=== PATIENT | male | born 1940 | race Caucasian/White ===

== ENCOUNTER 2017-02-15 05:47 | Inpatient (IN) | payer OTHER, MEDICARE ==
--- NOTE | 2017-02-14 18:16 | MH ---
cc: MO DENT M.D., ROHIT K. M.D. LEE, TSE C. MD HORENSTEIN, JOSHUA A. MD DATE OF ADMISSION: 02/15/2017 ADMISSION DIAGNOSIS Lumbar degenerative disk disease. HISTORY OF PRESENT ILLNESS This is a 76-year-old male who presented to us for evaluation of low back pain and leg pain that started 7 years ago. He states his pain initially started like a toothache pain has progressively gotten worse. He states that night his pain radiates into the posterior lower extremities and he rates the pain as 10/10 in severity. He has paresthesias in a similar distribution with this. With walking his pain is 6-8 out of 10 and sitting he is more comfortable. He has been to pain management and had injections which helped with his left leg pain. He states he has an 2 weeks relief from the injections in the right leg but they are becoming less effective. If he goes to the store, he leans on a cart. He use to play softball in a senior league and had to quit because of worsening pain. He has had physical therapy 7 years ago which did not help. PAST MEDICAL HISTORY 1. Significant for hypertension 2. Hyperlipidemia. 3. Gastroesophageal reflux disease 4. Of benign prostatic hypertrophy. 5. Multiple myeloma resections 2002 and 2012 6. bilateral rotator cuff surgery in 1970s and 1999's. 7. Right ear surgery 1969 8. Right heel bone spur removal 1984. 9. Bilateral carpal tunnel surgery in the . CURRENT MEDICATIONS 1. He takes tramadol 50 mg b.i.d. 2. Metoprolol ER succinate 25 mg daily. 3. Atorvastatin 10 mg daily. 4. Omeprazole 20 mg daily. 5. Doxazosin 2 mg daily. 6. Tylenol Extra Strength 4-6 tablets daily. 7. Multivitamin daily. 8. Vitamin B12 1000 milliequivalents daily. 9. Aspirin 81 mg stopped on 02/06. ALLERGIES TO MEDICATIONS BIAXIN FAMILY HISTORY His father is at 82 year's old had a stroke. His mother is at 80 year's old had dimension his brother is at 60 year's old had lung cancer, another brother is alive, one is 61. The other is 66. He has a sister who is alive at 72 and she has ovarian cancer. Another sister who is alive at 82. SOCIAL HISTORY He is retired. He is . He has one child with three step children. He does not smoke, but had in the past he quit in 1988. He drinks alcoholic beverages rarely. REVIEW OF SYSTEMS CONSTITUTIONAL: Denies any fever or chills. HEAD, EYES, EARS, NOSE, AND THROAT: Ears, nose and throat no pharyngitis, exudates or bloody drainage from his nose. He has hearing loss and wears hearing aids. CARDIOVASCULAR SYSTEM: Denies any chest pain or palpitations RESPIRATORY: No cough or shortness of breath. GENITOURINARY: No dysuria hematuria. MUSCULOSKELETAL: Positive for low back pain. SKIN: No rashes or pleuritis. NEUROLOGIC: No difficulty with speech or memory GASTROINTESTINAL: No nausea, vomiting, abdominal pain and PSYCHIATRIC: No anxiety or depression symptoms. ENDOCRINE: No polyuria, no polydipsia. HEMATOLOGIC: Positive for bruising tendencies but no bleeding tendencies. PHYSICAL EXAMINATION HEAD, EARS, EYES, NOSE, AND THROAT: Normocephalic, atraumatic. NECK: Supple. No carotid bruits heard on auscultation. LUNGS: The lungs clear to auscultation bilaterally. HEART: Regular rate and rhythm, normal S1, S2. ABDOMEN: The abdomen is soft, nontender, positive bowel sounds. He is obese. SKIN: The skin reveals no cyanosis or erythema. He has stasis changes, pitting skin on the extremities. MUSCULOSKELETAL: He has 5/5 strength in the lower extremities. He ambulates with a cane. NEUROLOGIC: The patient is awake, alert, oriented. Cranial nerves II-XII are grossly intact. His speech is fluent. Comprehension is good. Sensation is intact in the lower extremities. He has absent reflexes the lower extremities. DATA REVIEWED: We reviewed MRI lumbar spine from December 25, 2016 which reveals severe disk degeneration with disk height collapse at the L4-L5 and L5-S1 levels with moderate disk degeneration at the L1-L2, L2-L3, L3-L4 levels. There is multilevel facet arthropathy throughout the lumbar spine and he has stenosis most prominent the L4-L5 level with the spinal canal and foraminal stenosis at L4-L5, L5-S1 levels, more on the right then the left. IMPRESSION 76-year-old male with a chronic history of low back pain as well as a radiation to the posterior thigh and calves bilaterally although more problem on the right side. He is very restricted his activity status as undergone physical therapy interventional pain management. He has multilevel severe degenerative disk disease with facet arthropathy most prominent the L4-L5, L5-S1 levels with there is also spinal foraminal stenosis. He has a history of coronary artery disease and has edema in his lower extremities and complains of some dyspnea with exertion. The patient was cleared by his necktie operator pockets and pieces at a moderate risk for surgical complications. His necktie operator pockets and pieces Dr. Olivares. The procedure as well as the risks, benefits, alternatives and recovery times were explained in detail with the patient. We have discussed the risks involved with surgery include but not limited to bleeding, infection, muscle weakness voice hoarseness, difficulty swallowing, heart attack, stroke blood clots, non fusion, scar tissue formation among others. The patient states that he understands the procedure as well as the risk involved is requesting that we proceed and he was therefore scheduled accordingly. Bret Leonard MD DICTATED BY: JOHANNY Roper/tato /4:30 PM /5:56 PM
[~2017-02-15] VITALS: Ht 172.7 cm; Wt 126.2 kg
[~2017-02-15 05:47] MED LIST: ACET-703 PO; ASPI1TAB69 PO; ATOR10TA15 PO; DOCU100T9 PO; DOXA1TAB35 PO; METO25TA6 PO; MULT-135 PO; OMEP20TA PO; TRAM50TA PO; VITA10002 PO
[2017-02-15] MEDS ORDERED: METOPROLOL TARTRATE 25 MG TAB PO PRN (06:30)
[2017-02-15] MEDS ORDERED: CHLORHEXIDINE GLUCONATE 2 % 1 PACK (2 CLOTHS) TOPICAL PRN (06:30)
[2017-02-15] MEDS ORDERED: LACTATED RINGER'S 1000 ML IV PRN (06:30)
[2017-02-15] MEDS ORDERED: SODIUM CHLORID 0.9% 500 ML IV PRN (06:30)
[2017-02-15] MEDS ORDERED: POVIDONE IODINE 5% (ANTISEPSIS KIT) 4 APPLICATIONS EACH NARE PRN (06:30)
[2017-02-15] MEDS ORDERED: INSULIN HUMAN REGULAR 1,000 UNITS/10 ML VIAL SQ PRN (06:30)
[2017-02-15] MEDS ORDERED: VANCOMYCIN HCL 1000 MG VIAL ONE ×2 (07:07→08:13)
[2017-02-15] MEDS ORDERED: THROMBIN (TOPICAL) 5,000 UNIT VIAL ONE ×2 (07:07→11:08)
[2017-02-15] MEDS ORDERED: GELFOAM SIZE 100 ONE ×2 (07:07→11:09)
[2017-02-15] MEDS ORDERED: BUPIVACAINE/EPINEPHRINE 0.5% PF 30 ML VIAL ONE (07:07)
[2017-02-15 07:13] VITALS: BP 142/69; PULSE 62; RESP 20; TEMP 98.9; O2SAT 95
[2017-02-15] MEDS ORDERED: SODIUM CHLOR 0.9% 250 ML INJ 250 ML ONE (08:14)
[2017-02-15] MEDS ORDERED: fentaNYL CITRATE 250 MCG/5 ML AMP ONE ×2 (08:31→11:58)
[2017-02-15] MEDS ORDERED: MIDAZOLAM HCL 2 MG/2 ML VIAL ONE (08:31)
[2017-02-15] MEDS ORDERED: DEXAMETHASONE SOD PHOS 4 MG/ML VIAL ONE (08:32)
[2017-02-15] MEDS ORDERED: ACETAMINOPHEN 1000 MG/100 ML VIAL IV ONE (08:32)
[2017-02-15] MEDS ORDERED: FAMOTIDINE 20 MG/2 ML VIAL ONE (08:32)
[2017-02-15] MEDS ORDERED: VANCOMYCIN HCL 1000 MG ON-CALL/NS 250 ML IV SCH ×2 (09:00)
[2017-02-15] MEDS ORDERED: NORMOSOL R INJ 1,000 ML IV ONE (12:00)
[2017-02-15] MEDS ORDERED: ONDANSETRON HCL 4 MG/2 ML VIAL IV PUSH ONE (12:00)
[2017-02-15] MEDS ORDERED: PHENYLEPH/NS 1000 MCG/10 ML SYR IV ONE (12:00)
[2017-02-15] MEDS ORDERED: PROPOFOL 200 MG/20 ML AMP IV ONE (12:00)
[2017-02-15] MEDS ORDERED: ePHEDrine/NS 25 MG/5 ML SYR IV ONE (12:00)
[2017-02-15] MEDS ORDERED: NEOSTIGMINE 3 MG/3 ML SYR IV ONE (12:00)
[2017-02-15] MEDS: NS + KCL 20 MEQ INJ 1,000 ML IV SCH (13:50)
[2017-02-15] MEDS ORDERED: ALUMINUM/MAGNESIUM/SIMETH 30 ML CUP PO PRN (14:00)
[2017-02-15] MEDS ORDERED: MAGNESIUM SULFATE INJ 2 GM in SODIUM CHLORIDE 0.9% INJ 100 ML IV PRN (14:00)
[2017-02-15] MEDS ORDERED: ACETAMINOPHEN 325 MG TAB PO PRN (14:00)
[2017-02-15] MEDS ORDERED: PROCHLORPERAZINE INJ 10 MG/2 ML VIAL IV PUSH PRN (14:00)
[2017-02-15] MEDS ORDERED: CYCLOBENZAPRINE HCL 10 MG TAB PO PRN (14:00)
[2017-02-15] MEDS ORDERED: SODIUM CHLORIDE 0.9% FLUSH 10 ML FLUSH IV FLUSH PRN (14:00)
[2017-02-15] MEDS ORDERED: NALOXONE HCL 0.4 MG/ML AMP IV PRN (14:00)
[2017-02-15] MEDS ORDERED: ZOLPIDEM TARTRATE 5 MG TAB PO PRN (14:00)
[2017-02-15] MEDS ORDERED: POTASSIUM CHLOR 20 MEQ PREMIX 100 ML IV PRN (14:00)
[2017-02-15] MEDS ORDERED: diphenhydrAMINE HCL 50 MG/ML VIAL IV PRN (14:00)
[2017-02-15] MEDS ORDERED: cloNIDine HCL 0.1 MG TAB PO PRN (14:00)
[2017-02-15] MEDS ORDERED: ONDANSETRON HCL 4 MG/2 ML VIAL IV PRN (14:00)
[2017-02-15] MEDS ORDERED: MENTHOL LOZENGE BUCCAL PRN (14:00)
[2017-02-15] MEDS ORDERED: CALCIUM GLUCONATE INJ 1 GM in SODIUM CHLORIDE 0.9% INJ 100 ML IV PRN (14:00)
[2017-02-15] MEDS ORDERED: RESP: ALBUTEROL 2.5 MG/3 ML NEB (PRN) NEB (14:00)
--- NOTE | 2017-02-15 14:01 | PD.OP ---
MD Ying Spring MD Operative Report Date of Surgery: Feb 15, 2017 Preoperative Diagnosis: Intractable low back pain with bilateral polyradiculopathy; severe L4-5 and L5- S1 degenerative disc disease with facet arthropathy and associated foraminal stenosis; L5-S1 degenerative spondylolisthesis Postoperative Diagnosis: Same Procedure: L4-5 and L5-S1 transforaminal interbody fusion; L4-S1 pedicle screw fixation; L4 -5 and L5-S1 interbody cage placement; microsurgical technique Anesthesia: Gen. endotracheal by Keshav Renee Surgeon: Bret Leonard M.D. Methods Time Analyst(s): Selina Smith Operation and Findings: Following initiation of general endotracheal anesthesia, the patient had a Jeronimo catheter placed along with sequential compression devices. A gram of vancomycin was administered intravenously and he was turned in a prone position on a Tommie frame, on a Himanshu table, and all pressure points adequately padded. The lumbosacral region was then prepped with Chloraprep and sterilely draped with Ioban along the usual sterile draping. A right paraspinal skin incision was then made extending from the L4--S1 level after infiltrating the skin with 0.5% Marcaine with epinephrine solution extending down through the fascia. The muscle fibers were split using avascular fatty plane and detached from the underlying facets, transverse process and lateral portion of lamina on the right side and a self-retaining retractor used for exposure. Intraoperative fluoroscopy was also used for level of confirmation along with microscope magnification for further dissection. There was significant facet and ligamentum flavum hypertrophy noted at the L4-5 and L5-S1 levels. Right L4-5 and L5-S1 facet was resected with a drill bit along with the lamina and there was severe foraminal and lateral recess stenosis from hypertrophied ligamentum flavum and facet which were decompressed. There was significant disc height collapse along with disc protrusion also leading to the foraminal stenosis at both levels along with disc protrusion. Epidural hemostasis was achieved with bipolar cautery and Gelfoam with thrombin. Subsequently entered into the disc space at the L4-5 and L5-S1 level with a #15 blade and ryan were used for discectomy. I then placed PEEK cage packed with local autograft bone and more local autograft bone was packed adjacent to the cage in both interspaces for added interbody fusion. With placement of the cage, I was able to distract the interspace and opened up the foramen further bilaterally. Subsequently in order to facilitate the fusion and provide stabilization, pedicle screw fixation was undertaken using Borden spine screws on entry point at the right L4, L5 and S1 levels at the junction of the transverse process and facet. Subsequently using AP and lateral fluoroscopy tap and screw placement. The screws were then connected with a srinivasa and locked in place with caps. The construct appeared very secure at this point. The area was then copiously irrigated with Vancomycin solution and powder. The retractors were removed and the bipolar cautery used for hemostasis. The muscle fascia was then approximated using 2-0 Vicryl interrupted stitches and then 3-0 Vicryl subcuticular stitches also placed in interrupted fashion. The final skin closure was completed with Dermabond. A sterile dressing was then applied. The patient then turned in supine position, extubated and taken to recovery room. There were no intraoperative complications. All sponge and needle counts were correct at the end of procedure. Estimated blood loss about 100 ml. Bret Leonard MD Feb 15, 2017 14:01
--- NOTE | 2017-02-15 14:02 | RADRPT ---
EXAM DATE/TIME: 02/15/2017 09:16 [facility] COMPARISON: No previous studies available for comparison. INDICATIONS : L4-L5-S1 posterior lumbar fusion. Level localization. MEDICAL HISTORY : None. SURGICAL HISTORY : None. ENCOUNTER: Initial ACUITY: 1 day PAIN SCORE: Non-responsive. LOCATION: Lumbar spine. FINDINGS: Intraoperative examination demonstrates a localizing probe pointing towards L4 and L5. CONCLUSION: Intraoperative changes as above. Zohaib Ambriz MD on February 15, 2017 at 14:00 Board Certified Radiologist. This report was verified electronically.
--- NOTE | 2017-02-15 14:02 | RADRPT ---
EXAM DATE/TIME: 02/15/2017 09:16 [facility] COMPARISON: SPINE LUMBAR LATERAL ONLY, February 15, 2017, 9:16. INDICATIONS : Post-op L4-L5-S1 posterior lumbar fusion. MEDICAL HISTORY : None. SURGICAL HISTORY : None. ENCOUNTER: Initial ACUITY: 1 day PAIN SCORE: Non-responsive. LOCATION: Lumbar spine. FINDINGS: Surgical screws traverse the bodies of L4, L5 and S1 with posterior stabilization hardware in place. CONCLUSION: Intact immediate postsurgical changes. Zohaib Ambriz MD on February 15, 2017 at 13:59 Board Certified Radiologist. This report was verified electronically.
[2017-02-15] MEDS ORDERED: DO NOT ADM ANY ANTICOAGULANT DRUGS PRN (14:15)
[2017-02-15 14:27] LABS: AUTOMATED NEUTROPHIL # 14.1 TH/MM3 (1.8-7.7); BASOPHIL % 0.2 % (0.0-2.0); HEMATOCRIT 39.2 % (39.0-51.0); HEMO FLAGS DIFF FINAL; LYMPH % 10.3 % (9.0-44.0); LYMPHOCYTE # 1.7 TH/MM3 (1.0-4.8); MEAN CELL VOLUME 91.8 FL (80.0-100.0); MEAN CORPUSCULAR HEMOGLOBIN 29.7 PG (27.0-34.0); MEAN CORPUSCULAR HGB CONC 32.4 % (32.0-36.0); MONO % 2.9 % (0.0-8.0); NEUT % 86.6 % (16.0-70.0); PLATELET COUNT 147 TH/MM3 (150-450); RED BLOOD COUNT 4.27 MIL/MM3 (4.50-5.90); RED CELL DISTRIBUTION WIDTH 13.7 % (11.6-17.2); WHITE BLOOD COUNT 16.3 TH/MM3 (4.0-11.0)
[2017-02-15] MEDS: MORPHINE SULFATE 30 MG/30 ML PCA IV SCH (14:38)
[2017-02-15 14:52] LABS: BICARBONATE 26.8 MEQ/L (21.0-32.0); MAGNESIUM 2.1 MG/DL (1.5-2.5); POTASSIUM 4.7 MEQ/L (3.5-5.1)
[2017-02-15] MEDS: CLINDAMYCIN INJ 600 MG in SODIUM CHLORIDE 0.9% INJ 100 ML IV SCH ×2 (14:56→21:48)
[2017-02-15 18:19] VITALS: O2SAT 95
[2017-02-15 18:40] VITALS: BP 154/68; PULSE 90; RESP 16; TEMP 97.5; O2SAT 98
[2017-02-15 20:00] VITALS: BP 144/61; PULSE 86; RESP 20; TEMP 98.5; O2SAT 97
[2017-02-15] MEDS: SODIUM CHLORIDE 0.9% FLUSH 10 ML FLUSH IV FLUSH SCH (21:00)
[2017-02-15] MEDS: DOCUSATE SODIUM 100 MG CAP PO SCH (21:47)
[2017-02-15] MEDS: ATORVASTATIN 10 MG TAB PO SCH (21:47)
[2017-02-15] MEDS: PCA - TOTAL MG MORPHINE DELIVERED PER SHIFT SCH (21:48)
[2017-02-16] VITALS (8 sets, daily range): BP systolic 107–135; BP diastolic 43–57; PULSE 74–100; RESP 18–24; TEMP 96.5–102.2; O2SAT 94–99
[2017-02-16] MEDS: CLINDAMYCIN INJ 600 MG in SODIUM CHLORIDE 0.9% INJ 100 ML IV SCH ×2 (02:44→08:30)
[2017-02-16] MEDS: NS + KCL 20 MEQ INJ 1,000 ML IV SCH ×2 (05:35→14:50)
[2017-02-16] MEDS: PCA - TOTAL MG MORPHINE DELIVERED PER SHIFT SCH ×3 (05:35→21:53)
[2017-02-16] MEDS: METOPROLOL SUCCINATE 25 MG EXTENDED RELEASE TAB PO SCH (08:29)
[2017-02-16] MEDS: ASPIRIN EC 81 MG TABEC PO SCH (08:29)
[2017-02-16] MEDS: SODIUM CHLORIDE 0.9% FLUSH 10 ML FLUSH IV FLUSH SCH ×2 (08:29→19:48)
[2017-02-16] MEDS: DOCUSATE SODIUM 100 MG CAP PO SCH ×2 (08:29→19:47)
[2017-02-16] MEDS: CYANOCOBALAMIN 1,000 MCG TAB PO SCH (08:29)
[2017-02-16] MEDS: MULTIVITAMIN TAB PO SCH (08:29)
[2017-02-16] MEDS: PANTOPRAZOLE SOD 20 MG DELAYED RELEASE TAB PO SCH (08:29)
[2017-02-16] MEDS: POLYETHYLENE GLYCOL 17 GM PKG PO SCH (08:29)
[2017-02-16] MEDS ORDERED: DOXAZOSIN MESYLATE 2 MG TAB PO SCH (09:00)
--- NOTE | 2017-02-16 12:24 | HHI.NSPN ---
History Chief Complaint: right gluteal pain Interval History 76-year-old male underwent L4 5, L5-S1 TLIF 02/15/17 02/16/17: Bed with brace. FOREST NURSERY SUPERVISOR in place Exam Results Vital Signs Date Time Temp Pulse Resp B/P Pulse Ox O2 Delivery O2 Flow Rate FiO2 02/16/17 07:59 98.5 74 18 117/44 97 02/16/17 07:02 Nasal Cannula 2.00 Intake and Output 02/15/17 02/15/17 02/16/17 08:00 16:00 00:00 Intake Total 1400 ml 1030 ml Output Total 10 ml 800 ml Balance 1390 ml 230 ml Physical Examination Out of bed to chair with LSO brace JOHN hose and sequential compression devices in place Respirations clear to auscultation Cardiac regular without murmur Abdomen protuberant, soft, nontender, positive bowel sounds No significant extremity edema Sensation intact to light touch lower extremities Strength within normal limits major flexion and extension groups lower extremities Lab, Micro, Other Results Laboratory Tests Test 02/15/17 14:18 White Blood Count 16.3 TH/MM3 Red Blood Count 4.27 MIL/MM3 Hemoglobin 12.7 GM/DL Hematocrit 39.2 % Mean Corpuscular Volume 91.8 FL Mean Corpuscular Hemoglobin 29.7 PG Mean Corpuscular Hemoglobin 32.4 % Concent Red Cell Distribution Width 13.7 % Platelet Count 147 TH/MM3 Mean Platelet Volume 8.4 FL Neutrophils (%) (Auto) 86.6 % Lymphocytes (%) (Auto) 10.3 % Monocytes (%) (Auto) 2.9 % Eosinophils (%) (Auto) 0.0 % Basophils (%) (Auto) 0.2 % Neutrophils # (Auto) 14.1 TH/MM3 Lymphocytes # (Auto) 1.7 TH/MM3 Monocytes # (Auto) 0.5 TH/MM3 Eosinophils # (Auto) 0.0 TH/MM3 Basophils # (Auto) 0.0 TH/MM3 CBC Comment DIFF FINAL Differential Comment Sodium Level 141 MEQ/L Potassium Level 4.7 MEQ/L Chloride Level 107 MEQ/L Carbon Dioxide Level 26.8 MEQ/L Anion Gap 7 MEQ/L Blood Urea Nitrogen 24 MG/DL Creatinine 1.43 MG/DL Estimat Glomerular Filtration 48 ML/MIN Rate Random Glucose 159 MG/DL Calcium Level 8.4 MG/DL Magnesium Level 2.1 MG/DL Medical Decision Making Impression and Plan Impression: 1. Stable neurologic exam. L4 5, L5-S1 laminectomy fusion. 2. Postoperative hypotension Plan: Discussed with patient and family. Cardura decreased to 1 mg daily. Monitor blood pressure. Continue FOREST NURSERY SUPERVISOR for now Continue therapy Eyal Bettencourt MD Feb 16, 2017 12:24
[2017-02-16] MEDS: ATORVASTATIN 10 MG TAB PO SCH (19:47)
[2017-02-17] VITALS: BP 123/52; PULSE 87; RESP 24; TEMP 99.1; O2SAT 97
[2017-02-17] MEDS: MORPHINE SULFATE 30 MG/30 ML PCA IV SCH (02:42)
[2017-02-17 03:46] VITALS: BP 130/55; PULSE 71; RESP 20; TEMP 98.9; O2SAT 94
[2017-02-17] MEDS: NS + KCL 20 MEQ INJ 1,000 ML IV SCH ×2 (03:51→07:38)
[2017-02-17] MEDS: PCA - TOTAL MG MORPHINE DELIVERED PER SHIFT SCH ×2 (05:35→11:14)
[2017-02-17] MEDS: METOPROLOL SUCCINATE 25 MG EXTENDED RELEASE TAB PO SCH (07:31)
[2017-02-17] MEDS: PANTOPRAZOLE SOD 20 MG DELAYED RELEASE TAB PO SCH (07:31)
[2017-02-17] MEDS: ASPIRIN EC 81 MG TABEC PO SCH (07:31)
[2017-02-17] MEDS: DOXAZOSIN MESYLATE 1 MG TAB PO SCH (07:31)
[2017-02-17] MEDS: MULTIVITAMIN TAB PO SCH (07:32)
[2017-02-17] MEDS: DOCUSATE SODIUM 100 MG CAP PO SCH ×2 (07:32→20:27)
[2017-02-17] MEDS: SODIUM CHLORIDE 0.9% FLUSH 10 ML FLUSH IV FLUSH SCH ×2 (07:32→20:27)
[2017-02-17] MEDS: CYANOCOBALAMIN 1,000 MCG TAB PO SCH (07:32)
[2017-02-17] MEDS: MAGNESIUM HYDROXIDE SUSP 30 ML CUP PO PRN ×2 (07:32→20:34)
[2017-02-17] MEDS: POLYETHYLENE GLYCOL 17 GM PKG PO SCH (07:32)
[2017-02-17] MEDS: ACETAMINOPHEN/HYDROcodone 325 MG/10 MG TAB PO PRN ×3 (07:32→15:17)
[2017-02-17 08:00] VITALS: BP 99/55; PULSE 74; RESP 18; TEMP 99.3; O2SAT 95
[2017-02-17 12:00] VITALS: BP 112/53; PULSE 73; RESP 18; TEMP 98.8; O2SAT 96
[2017-02-17] MEDS ORDERED: WALKER WHEELS/F1 MIS (12:39)
--- NOTE | 2017-02-17 12:41 | HHI.FF ---
Face to Face Verification Diagnosis: (1) Lumbar disc prolapse with compression radiculopathy (2) Low back pain Physical Therapy Order: Evaluate and Treat, Improve ambulation Home Health Nursing Order: Medical education Signs/symptoms of disease process Wound care and dressing changes I have seen patient Jass Coats on 02/17/17. My clinical findings support the need for the requested home health care services because: Deconditioned w/ increased weakness Limited ability to care for self High risk of falls I certify that my clinical findings support that this patient is homebound because: Post-op weakness Unsteady gait/balance Unsafe to leave home unassisted Unable to use public transportation Eyal Bettencourt MD Feb 17, 2017 12:40
[2017-02-17 15:18] VITALS: BP 119/57; PULSE 76; RESP 18; TEMP 98.2; O2SAT 95
--- NOTE | 2017-02-17 19:27 | HHI.NSPN ---
History Chief Complaint: right gluteal pain Interval History 76-year-old male underwent L4 5, L5-S1 TLIF 02/15/17 02/16/17: Bed with brace. HAMMER FITTER in place Exam Results Vital Signs Date Time Temp Pulse Resp B/P Pulse Ox O2 Delivery O2 Flow Rate FiO2 02/17/17 15:18 98.2 76 18 119/57 95 02/17/17 07:38 Room Air 02/16/17 10:06 21 02/16/17 07:02 2.00 Intake and Output 02/16/17 02/16/17 02/17/17 08:00 16:00 00:00 Intake Total 240 ml 1148 ml 1772 ml Output Total 500 ml 800 ml Balance -260 ml 348 ml 1772 ml Physical Examination Out of bed to chair with LSO brace JOHN hose and sequential compression devices in place Respirations clear to auscultation Cardiac regular without murmur Abdomen protuberant, soft, nontender, positive bowel sounds No significant extremity edema Sensation intact to light touch lower extremities Strength within normal limits major flexion and extension groups lower extremities Medical Decision Making Impression and Plan Impression: 1. Stable neurologic exam. L4 5, L5-S1 laminectomy fusion. 2. Postoperative hypotension improving Plan: Discussed with patient and family. Cardura decreased to 1 mg daily. Monitor blood pressure. Discontinue HAMMER FITTER Continue physical therapy Discussed with case management. Orders for walker and home health care-home physical therapy placed Eyal Bettencourt MD Feb 17, 2017 19:27
[2017-02-17 20:00] VITALS: BP 102/44; PULSE 79; RESP 20; TEMP 99.9; O2SAT 92
[2017-02-17] MEDS: ATORVASTATIN 10 MG TAB PO SCH (20:27)
[2017-02-18] VITALS: BP 125/55; PULSE 93; RESP 20; TEMP 100.4; O2SAT 95
[2017-02-18] MEDS: ACETAMINOPHEN/HYDROcodone 325 MG/10 MG TAB PO PRN ×4 (01:51→16:17)
[2017-02-18 04:00] VITALS: TEMP 100.2
[2017-02-18 08:00] VITALS: BP 131/57; PULSE 80; RESP 19; TEMP 98.7; O2SAT 93
[2017-02-18] MEDS: DOCUSATE SODIUM 100 MG CAP PO SCH (08:34)
[2017-02-18] MEDS: PANTOPRAZOLE SOD 20 MG DELAYED RELEASE TAB PO SCH (08:34)
[2017-02-18] MEDS: MULTIVITAMIN TAB PO SCH (08:34)
[2017-02-18] MEDS: DOXAZOSIN MESYLATE 1 MG TAB PO SCH (08:35)
[2017-02-18] MEDS: ASPIRIN EC 81 MG TABEC PO SCH (08:35)
[2017-02-18] MEDS: SODIUM CHLORIDE 0.9% FLUSH 10 ML FLUSH IV FLUSH SCH (08:36)
[2017-02-18] MEDS: CYANOCOBALAMIN 1,000 MCG TAB PO SCH (08:36)
[2017-02-18] MEDS: POLYETHYLENE GLYCOL 17 GM PKG PO SCH (08:36)
[2017-02-18] MEDS: METOPROLOL SUCCINATE 25 MG EXTENDED RELEASE TAB PO SCH (08:53)
--- NOTE | 2017-02-18 10:40 | HHI.NSPN ---
(Jase Cm) History Chief Complaint: right gluteal pain extending into posterior right hamstring. ( Jase Cm) Interval History 02/18/17: Pt sitting up in chair. Complains of pain radiating into the right buttocks and posterior hamstring area not past the knee. Denies any chest pain or sob. Having BMs. Ambulates. Pain controlled off PERSONNEL ASSOCIATE. (Jase Cm) Review of Systems General: Negative for: fever, chills, insomnia Respiratory: Negative for: shortness of breath, cough, sputum Cardiovascular: Negative for: chest pain Gastrointestinal: Negative for: nausea, vomitting, diarrhea, constipation ( Jase Cm) Exam Results Vital Signs Date Time Temp Pulse Resp B/P Pulse Ox O2 Delivery O2 Flow Rate FiO2 02/18/17 08:00 98.7 80 19 131/57 93 02/18/17 01:05 Room Air 02/16/17 10:06 21 02/16/17 07:02 2.00 Intake and Output 02/17/17 02/17/17 02/18/17 08:00 16:00 00:00 Intake Total 725 ml 720 ml 240 ml Output Total 400 ml 275 ml Balance 725 ml 320 ml -35 ml (Jase Cm) Physical Examination Resp: CTA bilaterally Heart: NSR no murmurs Abd: Soft positive bs. Skin: No cyanosis or erythema Muscle: Moves LEs with 5/5 strength. Pt ambulates with walker. Neuro: Pt awake and alert. Follows commands well. Speech clear and appropriate. (Jase Cm) Lab, Micro, Other Results 02/17/17 02/17/17 02/18/17 15:00 23:00 07:00 Intake Total 720 ml 240 ml 120 ml Output Total 400 ml 275 ml Balance 320 ml -35 ml 120 ml Intake Oral 720 ml 240 ml 120 ml Output Urine Total 400 ml 275 ml # Voids 3 2 # Bowel Movements 0 0 1 (Jase Cm) Medical Decision Making Impression and Plan A: 76 y/o m s/p L4/L5 and L5/S1 TLIF with cage and pedicle screw fixation. P: Discharge pt home. continue with pain control. Discussed and pt and agree to using Neurontin 300mg qhs. Follow up as scheduled in the office. (Jase Cm) Attending Statement The exam, history, and the medical decision-making described in the above note were completed with the assistance of the mid-level provider. I reviewed and agree with the findings presented. I attest that I had a [id number] encounter with the patient on the same day, and personally performed and documented my assessment and findings in the medical record. (Bret Leonard MD) Jase Cm Feb 18, 2017 10:40 Bret Leonard MD Feb 18, 2017 12:11
[2017-02-18] MEDS ORDERED: GABA300C5 PO (10:44)
[2017-02-18] MEDS ORDERED: HYDR-3583 PO (10:44)
[2017-02-18 12:00] VITALS: BP 138/62; PULSE 80; RESP 21; TEMP 99; O2SAT 96
[2017-02-22] MEDS ORDERED: GABA300C5 PO (15:58)
--- NOTE | 2017-03-22 16:40 | HHI.DS ---
Discharge Summary Admission Date Feb 15, 2017 at 13:54 Discharge Date: Feb 18, 2017 Admitting Diagnosis (1) Lumbar spondylolysis Diagnosis: Principal ICD Code: M43.06 (2) Facet arthropathy, lumbar Diagnosis: Principal ICD Code: M12.88 (3) Lumbar degenerative disc disease Diagnosis: Principal ICD Code: M51.36 (4) Lumbar foraminal stenosis Diagnosis: Principal ICD Code: M99.83 (5) Lumbar stenosis with neurogenic claudication Diagnosis: Principal ICD Code: M48.06 (6) Low back pain Diagnosis: Principal ICD Code: M54.5 (7) Lumbar disc prolapse with compression radiculopathy Diagnosis: Principal ICD Code: M51.16 Procedures L4/L5 and L5/S1 transforaminal interbody fusion with cage and pedicle screw fixation by Bret Leonard MD on 02/15/17. Brief History Is a 76-year-old male who presented to our office for an evaluation of low back pain and leg pain started 7 years ago. He states his pain initially started like a toothache type of pain has progressively gotten worse. He states the at night his pain radiates into the posterior lower extremities and he rates the pain as 10 out of 10 in severity. He has paresthesias in a similar distribution with this. With walking his pain as 6-8/10 and sitting he is more comfortable. He has been to pain management had injections which helped with his left leg pain. He states he had 2 weeks relief from the injections in the right leg but they've become less effective. If he has to go to the store he leans on a cart. He has been unable to do the activities he enjoys doing such as playing softball. He has been to physical therapy 7 years ago which did not help. Imaging MRI of the lumbar spine from 12/25/16 reveal severe disc degeneration with disc height collapse at the L4/L5 and L5/S1 levels with moderate disc degeneration at the L1/L2, L2/L3, L3/L4 levels. There is multilevel facet arthropathy throughout the lumbar spine and he has stenosis most prominent at the L4/L5 level with spinal canal and foraminal stenosis at L4/L5, L5/S1 more on the right than the left. Hospital Course Patient underwent the above-noted procedure performed by Dr. Leonard. There is no intraoperative complications. Postoperatively patient was admitted to the medical/surgical floor. His pain was controlled with a THREAD WINDER. Physical therapy was consulted to in his activity status was increased. Patient's THREAD WINDER was discontinued and his pain was controlled with oral pain medication. Patient was discharged home in stable condition. Pt Condition on Discharge: Stable Discharge Disposition: Disch w/ Home Health Serv Discharge Instructions DIET: Follow Instructions for: As Tolerated, No Restrictions ACTIVITIES You can perform: Shower Only-No Bath Activities to Avoid: Lifting/Bending, Prolonged Standing, Strenuous Activity, Bathing, Driving ADDITIONAL Activity Instructio: Lumbar brace on when oob. Follow up Referrals: Home Health with [facility] New Medications: Walker with Front Wheels (Walker with Front Wheels) 1 Mis Mis 1 EA .ROUTE DIRECTED Pain Management #1 Ref 0 EA PENDING: Hydrocodone-Acetaminophen (Hydrocodone-Acetaminophen) 10-325 mg Tab 1 TAB PO Q4H PRN PAIN SCALE 1 TO 5 #60 TAB Continued Medications: Aspirin (Aspirin) 81 Mg Tabdr 81 MG PO DAILY TAB Atorvastatin (Atorvastatin) 10 Mg Tab 10 MG PO HS Cholesterol Management #30 Ref 0 TAB Cyanocobalamin (Vitamin B-12) 1,000 Mcg Tab 1000 MCG PO DAILY Nutritional Supplement #1 Ref 0 BOTTLE Docusate Sodium (Docusate Sodium) 100 Mg Tab 100 MG PO DAILY TAB Doxazosin (Doxazosin) 2 Mg Tab 2 MG PO DAILY #30 Ref 0 TAB Metoprolol Succinate ER 24 HR (Metoprolol Succinate ER 24 HR) 25 Mg Tab 25 MG PO DAILY #30 Ref 0 TAB Multiple Vitamin (Multi Vitamin) 1 Tab Tab 1 TAB PO DAILY TAB Omeprazole (Omeprazole) 20 Mg Tab 20 MG PO DAILY #30 Ref 0 TAB Discontinued Medications: Acetaminophen (Tylenol Extra Strength) 500 Mg Tab 500 MG PO Q4-6H PRN PAIN Ref 0 TAB Tramadol (Tramadol) 50 Mg Tab 50 MG PO Q8H PRN PAIN Ref 0 TAB Jase Cm March 22, 2017 16:40
== END 2017-02-18 17:07 | disposition home health service (06) | DRG 460 ==
LOC: HSDC 05:47 → EDSTATUS 08:30 → HSDI 13:54 → N06A 16:59
PROVIDERS: ADMIT Neurological Surgery; ATTEND Neurological Surgery
PROC: 0SG30AJ Fusion of Lumbosacral Joint with Interbody Fusion Device, Posterior Approach, Anterior Column, Open Approach (ICD-10-PCS; 2017-02-15)
PROC: 0SB40ZZ Excision of Lumbosacral Disc, Open Approach (ICD-10-PCS; 2017-02-15)
PROC: 0SG00AJ Fusion of Lumbar Vertebral Joint with Interbody Fusion Device, Posterior Approach, Anterior Column, Open Approach (ICD-10-PCS; principal; 2017-02-15 08:52)
DX: M51.17 Intervertebral disc disorders with radiculopathy, lumbosacral region (principal); I10 Essential (primary) hypertension; E78.5 Hyperlipidemia, unspecified; K21.9 Gastro-esophageal reflux disease without esophagitis; M48.07 Spinal stenosis, lumbosacral region; M43.17 Spondylolisthesis, lumbosacral region; I95.81 Postprocedural hypotension; G89.29 Other chronic pain; E66.9 Obesity, unspecified; Z68.41 Body mass index [BMI] 40.0-44.9, adult; M46.07 Spinal enthesopathy, lumbosacral region; Z85.89 Personal history of malignant neoplasm of other organs and systems; Z87.891 Personal history of nicotine dependence
CPT/HCPCS: 72020; 72100; 76000; 80048; 83735; 85025; 86850; 86900; 86901; 94150; C1713; J0131; J1100; J2250; J2270; J2370; J2405; J2710; J3010; J3370; J3480; J7050; L0484

== ENCOUNTER → 2017-12-27 | Outpatient (CLI) | payer OTHER ==
[~2017-12-27] MED LIST changes: -ACET-703 PO; +ACET-822 PO; -ASPI1TAB69 PO; -ATOR10TA15 PO; -DOCU100T9 PO; +LISI20TA3 PO; +METO1TAB42 PO; -METO25TA6 PO; -MULT-135 PO; +MULT-65 PO; -OMEP20TA PO; +OMEP20TA93 PO; -TRAM50TA PO; +TYLE325T PO
== END ==
LOC: CPRE 09:06
PROVIDERS: ATTEND Orthopaedic Surgery Sports Medicine
DX: M17.12 Unilateral primary osteoarthritis, left knee (principal)

== ENCOUNTER 2018-01-13 07:55 | Inpatient (IN) | payer OTHER, MEDICARE ==
[~2018-01-13] VITALS: Ht 172.7 cm; Wt 121.2 kg
[~2018-01-13 07:55] MED LIST changes: -TYLE325T PO
[2018-01-13] MEDS: PANTOPRAZOLE SOD 20 MG DELAYED RELEASE TAB PO SCH ×2 (08:00→09:00)
[2018-01-13] MEDS ORDERED: ceFAZolin 2 GM PREMIX 50 ML IV SCH (08:30)
[2018-01-13] MEDS ORDERED: POVIDONE IODINE 5% (ANTISEPSIS KIT) 4 APPLICATIONS EACH NARE PRN (08:30)
[2018-01-13] MEDS ORDERED: LACTATED RINGER'S 1000 ML IV PRN (08:30)
[2018-01-13] MEDS ORDERED: CHLORHEXIDINE GLUCONATE 4% SOLN 120 ML BTL TOPICAL SCH (08:30)
[2018-01-13] MEDS ORDERED: CHLORHEXIDINE GLUCONATE 2 % 1 PACK (2 CLOTHS) TOPICAL PRN (08:30)
[2018-01-13] MEDS ORDERED: METOPROLOL TARTRATE 25 MG TAB PO PRN (08:30)
[2018-01-13] MEDS ORDERED: POVIDONE IODINE 7.5% SCRUB 118 ML BOTTLE TOPICAL SCH (08:30)
[2018-01-13] MEDS ORDERED: INSULIN HUMAN REGULAR 1,000 UNITS/10 ML VIAL SQ PRN (08:30)
[2018-01-13] MEDS ORDERED: SODIUM CHLORID 0.9% 500 ML IV PRN (08:30)
[2018-01-13] MEDS ORDERED: DEXAMETHASONE SOD PHOS PF 10 MG/ML VIAL IV SCH (08:30)
[2018-01-13] MEDS ORDERED: ASPI-516 CHEW (08:36)
[2018-01-13] MEDS ORDERED: ONDANSETRON HCL 4 MG/2 ML VIAL IVP PRN (08:45)
[2018-01-13] MEDS ORDERED: MORPHINE SULFATE 4 MG/ML INJ IV PUSH PRN (08:45)
[2018-01-13] MEDS ORDERED: BISACODYL 10 MG SUPP RECTAL PRN (08:45)
[2018-01-13] MEDS ORDERED: diphenhydrAMINE HCL 50 MG/ML VIAL IV PUSH PRN (08:45)
[2018-01-13] MEDS ORDERED: ZOLPIDEM TARTRATE 5 MG TAB PO PRN (08:45)
[2018-01-13] MEDS ORDERED: ACETAMINOPHEN/HYDROcodone 325 MG/7.5 MG TAB PO PRN (08:45)
[2018-01-13] MEDS ORDERED: HYDR-3288 PO (08:46)
[2018-01-13] MEDS ORDERED: ASPI81CH6 CHEW (08:47)
[2018-01-13] MEDS ORDERED: ROPIVACAINE PERI-ARTICULAR INJECTION. P-ARTICULR SCH ×5 (09:00)
[2018-01-13] MEDS ORDERED: NON-FORMULARY DRUG (Lisinopril-Hctz 1 TAB) PO SCH (09:00)
[2018-01-13] MEDS: DOXAZOSIN MESYLATE 2 MG TAB PO SCH (09:00)
[2018-01-13] MEDS ORDERED: TRANEXAMIC ACID IV SCH (09:00)
[2018-01-13] MEDS: LISINOPRIL 20 MG TAB PO SCH (09:00)
[2018-01-13] MEDS: METOPROLOL SUCCINATE 25 MG EXTENDED RELEASE TAB PO SCH (09:00)
[2018-01-13] MEDS ORDERED: SODIUM CHLORIDE 0.9% IV SCH (09:00)
[2018-01-13] MEDS: HYDROCHLOROTHIAZIDE 25 MG TAB PO SCH (09:00)
[2018-01-13] MEDS ORDERED: TRANEXAMIC PERI-ARTICULAR 3,000 MG/NS 100 ML P-ARTICULR SCH ×2 (09:00)
[2018-01-13] MEDS ORDERED: MIDAZOLAM HCL 2 MG/2 ML VIAL ONE (09:35)
[2018-01-13] MEDS ORDERED: MIDAZOLAM HCL 2 MG/2 ML VIAL IV ONE (10:15)
[2018-01-13] MEDS ORDERED: GENTAMICIN SULFATE 80 MG/2 ML VIAL ONE (10:29)
[2018-01-13] MEDS ORDERED: ACETAMINOPHEN 1000 MG/100 ML 100 ML IV ONE (10:41)
[2018-01-13] MEDS: VANCOMYCIN 1000 MG/NS 250 ML (for <70 kg) IV SCH ×4 (10:53→12:09)
[2018-01-13] MEDS ORDERED: BACITRACIN TOP OINT 15 GM TUBE ONE (11:14)
[2018-01-13] MEDS ORDERED: GLYCOPYRROLATE 1 MG/5 ML SYRINGE IV PUSH ONE (12:00)
[2018-01-13] MEDS ORDERED: ONDANSETRON HCL 4 MG/2 ML VIAL IV ONE (12:00)
[2018-01-13] MEDS ORDERED: PHENYLEPH/NS 1000 MCG/10 ML SYR IV ONE (12:00)
[2018-01-13] MEDS ORDERED: ROCURONIUM INJ 50 MG/5 ML SYRINGE IV PUSH ONE (12:00)
[2018-01-13] MEDS ORDERED: METOPROLOL TARTRATE 5 MG/5 ML VIAL IV ONE (12:00)
[2018-01-13] MEDS ORDERED: PROPOFOL 200 MG/20 ML AMP IV ONE (12:00)
[2018-01-13] MEDS ORDERED: ePHEDrine/NS 25 MG/5 ML SYRINGE IV ONE (12:00)
[2018-01-13] MEDS ORDERED: DO NOT ADM ANY ANTICOAGULANT DRUGS PRN (12:19)
[2018-01-13] MEDS ORDERED: Post-op Orders (for Pharmacy) XX ONE (12:19)
--- NOTE | 2018-01-13 13:18 | HHI.DCPOC ---
Discharge Care Plan Diagnosis: (1) Primary localized osteoarthrosis, lower leg Your Health Problems Are: Difficulty with ADL Goals to Promote Your Health * To prevent worsening of your condition and complications * To maintain your health at the optimal level Directions to Meet Your Goals Take your medications as prescribed Follow your dietary instruction Follow activity as directed Keep your appointments as scheduled Take your immunizations and boosters as scheduled If your symptoms worsen call your PCP, if no PCP go to Urgent Care Center or Emergency Room Smoking is Dangerous to Your Health. Avoid second hand smoke Call the 24-hour hour crisis hotline for domestic abuse at [facility] Martinez Jan 13, 2018 13:18
[2018-01-13] MEDS ORDERED: SUGAMMADEX SODIUM 200 MG/2 ML VIAL IV PUSH ONE (13:31)
[2018-01-13] MEDS ORDERED: MORPHINE SULFATE 4 MG/ML INJ ONE (13:31)
--- NOTE | 2018-01-13 14:16 | RADRPT ---
EXAM DATE/TIME: 01/13/2018 13:47 [facility] COMPARISON: No previous studies available for comparison. INDICATIONS : Post-op total left knee arthroplasty. MEDICAL HISTORY : None. SURGICAL HISTORY : None. ENCOUNTER: Initial ACUITY: 1 day PAIN SCORE: Non-responsive. LOCATION: Left knee FINDINGS: AP and lateral views of the knee following arthroplasty reveals a prosthesis in anatomic alignment. F racture is not appreciated. Surgical drain is evident CONCLUSION: Status post total knee arthroplasty. Sergio Hernandez MD FACR on January 13, 2018 at 14:12 Board Certified Radiologist. This report was verified electronically.
--- NOTE | 2018-01-13 14:18 | MP ---
cc: Brent Garcia MD DATE OF OPERATION: PREOPERATIVE DIAGNOSIS: Left knee osteoarthritis. POSTOPERATIVE DIAGNOSIS: Left knee osteoarthritis. PROCEDURE: Left total knee arthroplasty. SURGEON: Brent Garcia MD VISCOSE DEPARTMENT WORKER: AVA Will ANESTHESIA: General with a femoral nerve femoral nerve block. ESTIMATED BLOOD LOSS: 100 mL. TOURNIQUET TIME 28 minutes at 250 mmHg. COMPLICATIONS: None. IMPLANTS USED: DePuy Attune size 8 posterior stabilized femoral component, size 8 rotating platform tibial baseplate, size 6 mm polyethylene tibial insert, size 38 patella. JUSTIFICATION: This patient is a 77-year-old male with history of severe end-stage osteoarthritis involving the left knee. He has severe disabling pain with standing, walking and ambulation, weightbearing activities and severe pain at rest. It does interfere with activities of daily living. He has failed greater than 3 months of nonoperative conservative treatment to include medication, therapy, injections, ambulatory assistive aids, home exercise program, activity modification, and weight loss attempts. X-rays of the left knee reveal severe end-stage osteoarthrosis with joint space narrowing, subchondral sclerosis, subchondral cyst osteophyte formation and deformity with subluxation. The patient was counseled on risks, benefits, alternatives to a total knee arthroplasty. The risks were discussed, which included but were not limited to anesthesia, bleeding, infection, damage to nerves and blood vessels, pain, stiffness, failure of components, blood clots, pulmonary embolism and even . Patient's pain is severe. He favors the benefits over the risks and did wish to proceed with surgery. PROCEDURE IN DETAIL: Written consent was obtained. The patient was identified by name, taken to the operating room and placed supine on the operating table. General anesthesia was administered as well as 2 gm of IV Ancef and 1 gram IV vancomycin. A well-padded tourniquet was placed on the left thigh. The left lower extremity was prepped and draped using isopropyl alcohol, Hibiclens solution and ChloraPrep solution. After a timeout was performed, an Esmarch bandage was used to exsanguinate the left lower extremity and tourniquet was inflated to 250 mmHg. A longitudinal incision was made over the anterior aspect of the left knee. A medial parapatellar arthrotomy was performed. The patella was everted. A patellar resection guide was used to resect 9 mm of patella. The size 38 mm guide was placed, 3 drill holes were placed, and 38 mm trial fit well. Attention turned to the femur. Intramedullary guide was placed. The distal femoral guide was set to remove 11 mm of distal femur, 5 degrees off the anatomic valgus axis alignment. Oscillating saw was used to perform the distal femoral cut. Attention was turned to the tibia. An extramedullary tibial guide was set to remove 6 mm of the lowest portion of the medial tibial plateau. The tibial guide was pinned was placed. The tibia cut was performed. A 5 mm spacer block showed full extension. Attention was turned back to the femur. The AP sizing block measured a size 8. The anterior reference 3-degree external rotation guide was used to pin a size [address] The anterior and posterior chamfer cuts were performed. A size 8 PCL box guide was pinned in place. The PCL was box cut with an oscillating saw. The medial and lateral meniscus remnants were removed as well as bone and soft tissue debris from the posterior portion of the knee. Size 8 tibial base was pinned in place. Tibia was drilled and punched. Trial components were evaluated and final components cemented into place. With the current components, the leg achieved full extension to zero degrees, flexion to 140. No evidence of a tibial liftoff. Varus-valgus balance appeared appropriate and symmetric, and the patella was noted to track centrally. Tourniquet deflated. Bovie cautery was used for hemostasis. Surgical wound was thoroughly irrigated with sterile saline pulse lavage, antibiotic impregnated solution. The arthrotomy incision was closed with #1 Vicryl suture, subcutaneous layer with 2-0 Vicryl suture. Skin was closed with Dermabond. Sterile dressing applied. Patient tolerated procedure well with no intraoperative complications noted. Gianni Martinez, physician assistant professor of chemistry, certified present for entire procedure to include patient positioning and the procedure itself. The medical necessity of a physician assistant professor of chemistry indicated in this case due to complexity of procedure. He assisted with appropriate manipulation of the leg and also retraction of muscles, tendons, bones, neurovascular structure. He assisted in preparation of bone and implantation of the prosthetic replacement. MD DIDI Izaguirre/ALMA DELIA , 12:52 PM , 02:17 PM
[2018-01-13] MEDS ORDERED: *morphine SULFATE 10 MG/ML PERIprocedure ONLY ONE (15:41)
[2018-01-13] MEDS: SODIUM CHLOR 0.9% 1000 ML INJ 1,000 ML IV SCH ×2 (16:03→18:44)
[2018-01-13] MEDS: ceFAZolin 2 GM PREMIX 50 ML IV SCH (16:04)
[2018-01-13] MEDS ORDERED: *ONDANSETRON 4 MG VIAL PERIprocedural Use ONLY ONE (18:53)
[2018-01-13 20:00] VITALS: BP 155/74; PULSE 83; RESP 18; TEMP 97.8; O2SAT 94
[2018-01-14] VITALS (8 sets, daily range): BP systolic 106–127; BP diastolic 43–62; PULSE 64–82; RESP 19–22; TEMP 96.7–97.9; O2SAT 95–98
[2018-01-14] MEDS: ceFAZolin 2 GM PREMIX 50 ML IV SCH ×2 (00:08→04:37)
[2018-01-14] MEDS: ACETAMINOPHEN/HYDROcodone 325 MG/7.5 MG TAB PO PRN ×4 (02:00→18:37)
[2018-01-14] MEDS: SODIUM CHLOR 0.9% 1000 ML INJ 1,000 ML IV SCH ×3 (03:55→20:12)
[2018-01-14 05:57] LABS: HEMATOCRIT 32.6 % (39.0-51.0); HEMOGLOBIN 10.6 GM/DL (13.0-17.0); MEAN CELL VOLUME 91.1 FL (80.0-100.0); MEAN CORPUSCULAR HEMOGLOBIN 29.7 PG (27.0-34.0); MEAN CORPUSCULAR HGB CONC 32.6 % (32.0-36.0); MEAN PLATELET VOLUME 9.5 FL (7.0-11.0); PLATELET COUNT 135 TH/MM3 (150-450); RED BLOOD COUNT 3.57 MIL/MM3 (4.50-5.90); RED CELL DISTRIBUTION WIDTH 14.8 % (11.6-17.2); WHITE BLOOD COUNT 16.3 TH/MM3 (4.0-11.0)
[2018-01-14 05:58] LABS: BICARBONATE 23.2 MEQ/L (21.0-32.0); CALCIUM 7.7 MG/DL (8.5-10.1); CREATININE 1.66 MG/DL (0.60-1.30)
--- NOTE | 2018-01-14 08:33 | PD.ORT.PN ---
Subjective Post Op Day #: 1 Subjective Remarks doing well. pain controlled. Objective Vitals Vital Signs Date Time Temp Pulse Resp B/P (MAP) Pulse Ox O2 Delivery O2 Flow Rate FiO2 01/14/18 08:14 96 Nasal Cannula 2.00 01/14/18 04:00 97.9 82 22 114/43 (66) 96 01/14/18 00:00 97.3 76 22 127/62 (83) 97 01/13/18 20:15 98.3 83 15 102/50 (67) 98 Nasal Cannula 2 01/13/18 20:00 97.8 83 18 155/74 (101) 94 01/13/18 20:00 75 14 102/50 (67) 94 Nasal Cannula 2 01/13/18 19:30 75 15 115/55 (75) 98 Nasal Cannula 2 01/13/18 19:00 76 14 114/57 (76) 95 Nasal Cannula 2 01/13/18 18:00 80 16 119/56 (77) 96 Nasal Cannula 2 01/13/18 16:00 84 15 123/58 (79) 97 Nasal Cannula 2 01/13/18 15:00 83 13 135/64 (87) 97 Nasal Cannula 2 01/13/18 14:30 84 12 128/61 (83) 96 Nasal Cannula 2 01/13/18 14:15 80 16 123/59 (80) 96 Nasal Cannula 2 01/13/18 14:00 83 14 131/62 (85) 97 Nasal Cannula 4 01/13/18 13:45 88 15 144/65 (91) 98 Nasal Cannula 4 01/13/18 13:30 89 12 149/68 (95) 98 Simple Mask 8 01/13/18 13:21 98.5 98 13 145/70 (95) 100 Simple Mask 8 01/13/18 09:33 99 Nasal Cannula 2 01/13/18 08:38 98.8 68 16 150/81 (104) 97 I/O 01/13/18 01/13/18 01/13/18 01/14/18 01/14/18 01/14/18 07:00 15:00 23:00 07:00 15:00 23:00 Intake Total 1050 ml 447 ml 50 ml Output Total 100 ml 200 ml 0 ml Balance 950 ml 247 ml 50 ml Intake Oral 20 ml IV Total 1050 ml 427 ml 50 ml Output Urine Total 200 ml 0 ml Estimated Blood Loss 100 ml # Bowel Movements 0 Result Diagram: 01/14/18 0523 01/14/18 0523 Imaging Last 24 hours Impressions Knee X-Ray 01/13/1844 Signed Impressions: Service Date/Time: Saturday, January 13, 2018 13:47 - CONCLUSION: Status post total knee arthroplasty. Sergio Hernandez MD FACR Objective Remarks in bed, nad dressing c/d/i neg homans nvi Assessment & Plan Ortho Post Op Day #: 1 Problem List: Assessment and Plan s/p L TKA wbat ok to maintain dressing unless saturated lovenox, d/c on asa81 d/c planning home with [facility] and pt - cleared today if does well in PT rx in chart f/up dr. melchor 2 weeks Brent Martinez Jan 14, 2018 08:33
--- NOTE | 2018-01-14 08:34 | HHI.FF ---
Face to Face Verification Diagnosis: (1) Primary localized osteoarthrosis, lower leg Physical Therapy Gait training, Safety evaluation, Transfer training, bed to chair Knee: Total knee, Protocol: Left, Full weight bearing Left LE Weight Bearing: WB as tolerated Nursing RN: 3 days/week x 2 weeks Nursing: Dressing changes Dressing Changes: Daily dressing change I have seen patient Jass Coats on 01/14/18. My clinical findings support the need for the requested home health care services because: Limited ability to care for self High risk of falls I certify that my clinical findings support that this patient is homebound because: Post-op weakness Unsteady gait/balance Brent Martinez Jan 14, 2018 08:34
--- NOTE | 2018-01-14 08:49 | PD.CONS ---
[facility]. Reason for Consult Medical management. Primary Care Physician Katy Marte MD Diagnoses: History of Present Illness Mr. Coats is a pleasant 77 year old male with a history of hypertension, GERD and severe left knee osteoarthritis who underwent left total knee arthroplasty on 01/13/2018. Despite conservative management, he continued to have significant left knee pain limiting his quality of life which led to this surgical intervention. At the time of this interview, patient denies any chest pain, shortness of breath, fever, chills. No abdominal pain, no changes in bowel or bladder habits. Review of Systems Except as stated in HPI: all other systems reviewed are Neg Past Family Social History Allergies: Coded Allergies: Opioids-Meperidine and Related (Verified Allergy, Severe, Confusion, ) clarithromycin (Verified Allergy, Mild, Drowsiness, 01/13/18) Past Medical History Hypertension GERD Left knee osteoarthritis. Past Surgical History Back surgery Melanoma surgery 1 year ago. Reported Medications Current Medications Medications (Trade) Dose Ordered Sig/Edmundo Route Start Time Stop Time Status Last Admin (Cardura) 2 mg DAILY PO 01/13/18 09:00 (Toprol Xl) 25 mg DAILY PO 01/13/18 09:00 01/14/18 09:22 (Protonix) 20 mg DAILY PO 01/13/18 08:00 01/14/18 09:22 (Prinivil) 20 mg DAILY PO 01/13/18 09:00 01/14/18 09:22 (Hydrodiuril) 25 mg DAILY PO 01/13/18 09:00 01/14/18 09:21 (Lopressor) 25 mg INVESTMENT ACCOUNTING CLERK PRN PO 01/13/18 08:30 01/16/18 08:29 (Betadine 5% Antisepsis Kit) 1 applic INVESTMENT ACCOUNTING CLERK PRN EACH NARE 01/13/18 08:30 01/16/18 08:29 01/13/18 08:55 (Chlorhexidine 2% Cloth) 3 pack INVESTMENT ACCOUNTING CLERK PRN TOPICAL 01/13/18 08:30 01/16/18 08:29 01/13/18 08:00 (NovoLIN R INJ) See Protocol Table ... INVESTMENT ACCOUNTING CLERK PRN SQ 01/13/18 08:30 01/16/18 08:29 (Betadine 7.5% Scrub) 1 applic ONCE TOPICAL 01/13/18 08:30 01/16/18 08:29 (Hibiclens 4% Top Soln) 1 applic ONCE TOPICAL 01/13/18 08:30 01/16/18 08:29 Vancomycin HCl 1000 mg/Sodium Chloride 250 ml @ 250 mls/hr INVESTMENT ACCOUNTING CLERK IV 01/13/18 08:30 01/16/18 08:29 01/13/18 12:09 (Decadron Pf Inj) 10 mg INVESTMENT ACCOUNTING CLERK IV 01/13/18 08:30 01/13/18 08:57 Sodium Chloride 1,000 ml @ 100 mls/hr Q10H IV 01/13/18 08:44 01/13/18 16:03 (Lovenox Inj) 40 mg Q24H SQ 01/14/18 12:00 01/23/18 12:01 01/14/18 12:00 (Morphine Inj) 3 mg Q3H PRN IV PUSH 01/13/18 08:45 ([place] 7.5-325 Mg) 1 tab Q4H PRN PO 01/13/18 08:45 01/14/18 18:37 ([place] 7.5-325 Mg) 2 tab Q4H PRN PO 01/13/18 08:45 (Theragran M Tab) 1 tab BID PO 01/14/18 21:00 03/15/18 20:59 01/14/18 20:12 (Zofran Inj) 4 mg Q6H PRN IVP 01/13/18 08:45 01/13/18 21:01 (Colace) 100 mg BID PO 01/14/18 21:00 01/14/18 20:12 (Ambien) 5 mg HS PRN PO 01/13/18 08:45 (Dulcolax Supp) 10 mg DAILY PRN RECTAL 01/13/18 08:45 (Milk Of Magnesia Liq) 30 ml DAILY PRN PO 01/13/18 08:45 01/14/18 20:12 (Benadryl Inj) 25 mg Q6H PRN IV PUSH 01/13/18 08:45 Family History Mother had paranoia, Brother - lung cancer. Social History Quit smoking 28 years ago. Drinks socially. Physical Exam Vital Signs Vital Signs Date Time Temp Pulse Resp B/P (MAP) Pulse Ox O2 Delivery O2 Flow Rate FiO2 01/14/18 08:14 96 Nasal Cannula 2.00 01/14/18 04:00 97.9 82 22 114/43 (66) 96 01/14/18 00:00 97.3 76 22 127/62 (83) 97 01/13/18 20:15 98.3 83 15 102/50 (67) 98 Nasal Cannula 2 01/13/18 20:00 97.8 83 18 155/74 (101) 94 01/13/18 20:00 75 14 102/50 (67) 94 Nasal Cannula 2 01/13/18 19:30 75 15 115/55 (75) 98 Nasal Cannula 2 01/13/18 19:00 76 14 114/57 (76) 95 Nasal Cannula 2 01/13/18 18:00 80 16 119/56 (77) 96 Nasal Cannula 2 01/13/18 16:00 84 15 123/58 (79) 97 Nasal Cannula 2 01/13/18 15:00 83 13 135/64 (87) 97 Nasal Cannula 2 01/13/18 14:30 84 12 128/61 (83) 96 Nasal Cannula 2 01/13/18 14:15 80 16 123/59 (80) 96 Nasal Cannula 2 01/13/18 14:00 83 14 131/62 (85) 97 Nasal Cannula 4 01/13/18 13:45 88 15 144/65 (91) 98 Nasal Cannula 4 01/13/18 13:30 89 12 149/68 (95) 98 Simple Mask 8 01/13/18 13:21 98.5 98 13 145/70 (95) 100 Simple Mask 8 01/13/18 09:33 99 Nasal Cannula 2 Physical Exam GENERAL: This is a well-nourished, well-developed patient, in no apparent distress. SKIN: No rashes, ecchymoses or lesions. Warm and dry. HEAD: Atraumatic. Normocephalic. No temporal or scalp tenderness. EYES: Pupils equal round and reactive. No injection or drainage. ENT: Nose without bleeding, purulent drainage or septal hematoma. Airway patent. NECK: Trachea midline. No lymphadenopathy. Supple, nontender, no meningeal signs. CARDIOVASCULAR: Regular rate and rhythm without murmurs, gallops, or rubs. No JVD. RESPIRATORY: Clear to auscultation. Breath sounds equal bilaterally. No wheezes , rales, or rhonchi. GASTROINTESTINAL: Abdomen soft, non-tender, nondistended. No guarding. MUSCULOSKELETAL: Extremities without clubbing, cyanosis, or edema. s/p left TKA. NEUROLOGICAL: Awake and alert. Cranial nerves II through XII intact. No focal neurological deficits. Normal speech. Laboratory Laboratory Tests Test 01/14/18 05:23 White Blood Count 16.3 Red Blood Count 3.57 Hemoglobin 10.6 Hematocrit 32.6 Mean Corpuscular Volume 91.1 Mean Corpuscular Hemoglobin 29.7 Mean Corpuscular Hemoglobin Concent 32.6 Red Cell Distribution Width 14.8 Platelet Count 135 Mean Platelet Volume 9.5 Blood Urea Nitrogen 34 Creatinine 1.66 Random Glucose 134 Calcium Level 7.7 Sodium Level 141 Potassium Level 4.7 Chloride Level 109 Carbon Dioxide Level 23.2 Anion Gap 9 Estimat Glomerular Filtration Rate 40 Result Diagram: 01/14/18 0523 01/14/18 0523 Imaging Last Impressions Knee X-Ray 01/13/18 0844 Signed Impressions: Service Date/Time: Saturday, January 13, 2018 13:47 - CONCLUSION: Status post total knee arthroplasty. Sergio Hernandez MD FACR Assessment and Plan Assessment and Plan Mr. Coats is a pleasant 77 year old male with a history of HTN, GERD, left knee osteoarthritis who underwent Left TKA. - Left knee osteoarthritis - s/p Left TKA - On [place], Morphine PRN - Bowel regimen. - Hypertension - GERD - Continue Lisinopril 20mg Qday, Metoprolol succinate 25mg Qday, HCTZ 25mg Qday. Full code. Lovenox. Thank you for the consult. We will continue to follow this patient with you. Eleanor Vázquez DO Jan 14, 2018 08:49
[2018-01-14] MEDS: DOXAZOSIN MESYLATE 2 MG TAB PO SCH (09:00)
[2018-01-14] MEDS: HYDROCHLOROTHIAZIDE 25 MG TAB PO SCH (09:21)
[2018-01-14] MEDS: LISINOPRIL 20 MG TAB PO SCH (09:22)
[2018-01-14] MEDS: PANTOPRAZOLE SOD 20 MG DELAYED RELEASE TAB PO SCH (09:22)
[2018-01-14] MEDS: METOPROLOL SUCCINATE 25 MG EXTENDED RELEASE TAB PO SCH (09:22)
[2018-01-14] MEDS: ENOXAPARIN SODIUM 40 MG/0.4 ML SYRINGE SQ SCH (12:00)
[2018-01-14] MEDS: MULTIVITAMINS/MINERALS THERAPEUTIC TAB PO SCH (20:12)
[2018-01-14] MEDS: MAGNESIUM HYDROXIDE SUSP 30 ML CUP PO PRN (20:12)
[2018-01-14] MEDS: DOCUSATE SODIUM 100 MG CAP PO SCH (20:12)
[2018-01-15 01:00] VITALS: BP 136/61; PULSE 78; RESP 19; TEMP 98.4; O2SAT 94
[2018-01-15] MEDS: ACETAMINOPHEN/HYDROcodone 325 MG/7.5 MG TAB PO PRN ×2 (01:08→11:47)
[2018-01-15] MEDS: MAGNESIUM HYDROXIDE SUSP 30 ML CUP PO PRN (07:34)
[2018-01-15] MEDS: LISINOPRIL 20 MG TAB PO SCH (07:34)
[2018-01-15] MEDS: HYDROCHLOROTHIAZIDE 25 MG TAB PO SCH (07:34)
[2018-01-15] MEDS: DOXAZOSIN MESYLATE 2 MG TAB PO SCH (07:35)
[2018-01-15] MEDS: PANTOPRAZOLE SOD 20 MG DELAYED RELEASE TAB PO SCH (07:35)
[2018-01-15] MEDS: MULTIVITAMINS/MINERALS THERAPEUTIC TAB PO SCH (07:35)
[2018-01-15] MEDS: DOCUSATE SODIUM 100 MG CAP PO SCH (07:35)
[2018-01-15] MEDS: METOPROLOL SUCCINATE 25 MG EXTENDED RELEASE TAB PO SCH (07:35)
--- NOTE | 2018-01-15 08:04 | PD.ORT.PN ---
Subjective Post Op Day #: 2 Subjective Remarks doing well. pain controlled. ready to go home. Objective Vitals Vital Signs Date Time Temp Pulse Resp B/P (MAP) Pulse Ox O2 Delivery O2 Flow Rate FiO2 01/15/18 01:00 98.4 78 19 136/61 (86) 94 01/14/18 20:32 97.1 77 19 123/59 (80) 95 01/14/18 17:57 96 Nasal Cannula 2.00 01/14/18 16:00 97.2 64 20 115/62 (79) 98 01/14/18 12:00 96.7 66 20 106/50 (68) 98 01/14/18 08:14 96 Nasal Cannula 2.00 I/O 01/14/18 01/14/18 01/14/18 01/15/18 01/15/18 01/15/18 06:59 14:59 22:59 06:59 14:59 22:59 Intake Total 50 ml 500 ml 480 ml 480 ml Output Total 0 ml 550 ml 300 ml Balance 50 ml -50 ml 180 ml 480 ml Intake Oral 500 ml 480 ml 480 ml IV Total 50 ml Output Urine Total 0 ml 550 ml 300 ml # Voids 1 3 # Bowel Movements 0 0 0 Result Diagram: 01/14/18 0523 01/14/18 0523 Imaging Last 24 hours Impressions Knee X-Ray 01/13/18 0844 Signed Impressions: Service Date/Time: Saturday, January 13, 2018 13:47 - CONCLUSION: Status post total knee arthroplasty. Sergio Hernandez MD FACR Objective Remarks sitting in chair, nad, in room dressing c/d/i neg homans nvi Assessment & Plan Ortho Post Op Day #: 2 Problem List: Assessment and Plan s/p L TKA wbat ok to maintain dressing unless saturated lovenox, d/c on asa81 d/c planning home with [facility] and pt - cleared today if does well in PT rx in chart f/up dr. melchor 2 weeks Brent Martinez Jan 15, 2018 08:04
[2018-01-15 08:08] VITALS: BP 129/54; PULSE 77; RESP 18; TEMP 98.9; O2SAT 97
[2018-01-15] MEDS: SODIUM CHLOR 0.9% 1000 ML INJ 1,000 ML IV SCH (10:44)
[2018-01-15] MEDS: ENOXAPARIN SODIUM 40 MG/0.4 ML SYRINGE SQ SCH (11:47)
[2018-01-15 12:00] VITALS: BP 111/52; PULSE 78; RESP 18; TEMP 98.1; O2SAT 98
== END 2018-01-15 12:34 | disposition home health service (06) | DRG 470 ==
LOC: HSDC 07:55 → HSDI 08:46 → N06A 20:32
PROVIDERS: ADMIT Orthopaedic Surgery Sports Medicine; ATTEND Orthopaedic Surgery Sports Medicine
PROC: 3E0T3BZ Introduction of Anesthetic Agent into Peripheral Nerves and Plexi, Percutaneous Approach (ICD-10-PCS; 2018-01-13)
PROC: 0SRD0J9 Replacement of Left Knee Joint with Synthetic Substitute, Cemented, Open Approach (ICD-10-PCS; principal; 2018-01-13 10:59)
DX: M17.12 Unilateral primary osteoarthritis, left knee (principal); I10 Essential (primary) hypertension; M25.762 Osteophyte, left knee; K21.9 Gastro-esophageal reflux disease without esophagitis; Z87.891 Personal history of nicotine dependence; Z88.1 Allergy status to other antibiotic agents; Z88.5 Allergy status to narcotic agent
CPT/HCPCS: 73560; 80048; 85027; 86850; 86900; 86901; 94150; C1776; J0131; J0690; J0735; J1100; J1580; J1650; J1885; J2250; J2270; J2370; J2405; J2795; J3010; J3370; J7030; J7050; J7120; L1830